=== PATIENT | female | born 1980 | race Caucasian/White ===

== ENCOUNTER 2020-06-23 00:28 | Emergency (ER) | payer BC ==
[2020-06-23] MEDS ORDERED: predniSONE 20 MG Tab PO STA (01:04)
--- NOTE | 2020-06-23 01:11 | EDM.PDOC ---
ED HPI GENERAL MEDICAL PROBLEM - General Chief Complaint: Allergic Reaction Stated Complaint: POSS ALLERGIG REACTION Time Seen by Provider: 06/23/20 00:39 Source of Information: Reports: Patient History Limitations: Reports: No Limitations - History of Present Illness INITIAL COMMENTS - FREE TEXT/NARRATIVE: Mrs. Wgigins is a very pleasant 40-year-old woman who now presents the ED concerned that she may be suffering from an allergic reaction. She states that she had head and facial pressure, and a headache, with a fever up to 101 degrees, although no purulent nasal drainage, therefore she was seen at the walk-in clinic on , 06/15/2020. She states that no tests were done, but that she was diagnosed with a sinus infection and prescribed an antibiotic that she believes was doxycycline, 1 tablet twice a day for 7 days. She completed the course of the antibiotic 06/21/2020. About that time, she developed a pruritic erythematous rash extending from her ears, going down her neck and onto her chest. She is particularly pruritic on her palms. She feels like her lips are swollen, although she has no difficulty swallowing. No dyspnea or wheezing. No gastrointestinal upset or diarrhea. No prior similar symptoms. The patient states that she ordinarily takes 1 tablet of Zyrtec daily to treat her allergic rhinitis, however, when the rash developed, she switched to Benadryl, 25 mg 3 times a day. Here in the ED, the patient's initial BP is found to be modestly elevated at 153/82, otherwise, she is hemodynamically stable, afebrile, saturating 99% on room air. Prior to Friday, the patient denies having a recent fever, chills, sore throat, ear pain, nasal or sinus congestion, cough, dyspnea, chest pain, palpitations, nausea, vomiting, constipation, diarrhea, abdominal pain, urinary symptoms, recent weight gain or weight loss, recent bloody bowel movements or black bowel movements, recent joint aches, headaches, or rashes. The patient's PCP is Arline Grimes NP. Her women's health provider is Mariaelena Turcios NP. - Related Data Allergies Allergy/AdvReac Type Severity Reaction Status Date / Time doxycycline Allergy Rash Verified 06/23/20 01:06 Home Meds: Home Meds EPINEPHrine [Auvi-Q] 1 injection IM ASDIRECTED PRN #1 kit 06/23/20 [Rx] predniSONE [Prednisone] 1 tab PO QPM #4 tablet 06/23/20 [Rx] Past Medical History HEENT History: Reports: Allergic Rhinitis - Past Surgical History HEENT Surgical History: Reports: Oral Surgery (dental extractions) Female Surgical History: Reports: Breast Reduction Musculoskeletal Surgical History: Reports: Ganglion Cyst (right ankle) Social & Family History - Tobacco Use Smoking Status *Q: Former Smoker Years of Tobacco use: 13 Packs/Tins Daily: 0.5 Month/Year Tobacco Last Used: Quit 2011 - Alcohol Use Alcohol Use History: No - Recreational Drug Use Recreational Drug Use: No - Living Situation & Occupation Living situation: Reports: , with Spouse, with Family (2 kids) 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 ED EXAM GENERAL NO PERIP PULSE - Physical Exam Exam: See Below Exam Limited By: No Limitations General Appearance: Alert, WD/WN, No Apparent Distress Eye Exam: Bilateral Eye: EOMI, Normal Inspection Ears: Normal External Exam, Normal Canal, Hearing Grossly Normal, Normal TMs Nose: Normal Inspection, Normal Mucosa, No Blood Throat/Mouth: Normal Inspection (No angioedema), Normal Teeth, Normal Gums, Normal Oropharynx (No uvular edema), Normal Voice, No Airway Compromise Head: Atraumatic, Normocephalic, Facial Swelling (mild, generalized) Neck: Normal Inspection, Full Range of Motion Respiratory/Chest: No Respiratory Distress, Lungs Clear, Normal Breath Sounds, No Accessory Muscle Use. No: Decreased Breath Sounds, Crackles, Rhonchi, Wheezing, Stridor, Prolonged Expiration Cardiovascular: Normal Peripheral Pulses, Regular Rate, Rhythm, No Edema, No Gallop, No JVD, No Murmur, No Rub GI/Abdominal: Normal Bowel Sounds, Soft, Non-Tender, No Organomegaly, No Distention, No Abnormal Bruit, No Mass Back Exam: Normal Inspection, Full Range of Motion, NT Extremities: Normal Inspection, Normal Range of Motion, No Pedal Edema, Normal Capillary Refill Neurological: Alert, Oriented, Normal Cognition, No Motor/Sensory Deficits Psychiatric: Normal Affect Skin Exam: Warm, Dry, Intact, Normal Color, Other (Generalized urticaria) Course - Vital Signs Last Recorded V/S: Last Vital Signs Temp 36.3 C 06/23/20 00:38 Pulse 65 06/23/20 00:38 Resp 20 06/23/20 00:38 BP 153/82 H 06/23/20 00:38 Pulse Ox 99 06/23/20 00:38 - Orders/Labs/Meds Meds: Medications Discontinued Medications Generic Name Dose Route Start Last Admin Trade Name Amarilys PRN Reason Stop Dose Admin Prednisone 40 mg 06/23/20 01:04 06/23/20 01:11 Prednisone PO 06/23/20 01:05 40 mg ONETIME STA Administration - Re-Assessments/Exams Free Text/Narrative Re-Assessment/Exam: 06/23/20 01:05 As above, the patient developed a pruritic rash on Friday night, after completing a prescription of an antibiotic that she believes was doxycycline. No associated dyspnea or wheezing. She feels like her lips are swollen, and her face does appear to be somewhat swollen on exam, although I do not see any signs of angioedema. On exam, she has generalized urticaria. She ordinarily takes Zyrtec daily, but has been taking Benadryl since Friday night. The patient appears to be suffering from an allergic reaction, likely to the antibiotic that she took, but it is also possible that it is due to something else that she ingested. For tonight's purposes, the patient will be given 40 mg of oral prednisone, and going forward, I am recommending that she resume her daily Zyrtec, as opposed to Benadryl. I will submit a prescription for the patient to complete a 5-day course of prednisone, along with an EpiPen kit. I advised her to stay as cool as possible to minimize pruritus. I will refer her to an [facility] Work[facility] in [place]. Departure - Departure Time of Disposition: 01:07 Disposition: Home, Self-Care 01 Condition: Good Clinical Impression: Allergic reaction - Discharge Information *PRESCRIPTION DRUG MONITORING PROGRAM REVIEWED*: Not Applicable *COPY OF PRESCRIPTION DRUG MONITORING REPORT IN PATIENT DARLYN: Not Applicable Prescriptions: EPINEPHrine [Auvi-Q] 1 injection IM ASDIRECTED PRN #1 kit PRN Reason: Shortness Of Breath predniSONE [Prednisone] 1 tab PO QPM #4 tablet Instructions: Drug Rash, Drug Allergy, [id number] Referrals: Arline Grimes NP [Primary Care Provider] - Radha De Leon MD [Ordering Only Provider] - Forms: ED Department Discharge Additional Instructions: You were seen in the emergency room after developing an itchy rash after taking 1 week of an antibiotic. Based on your history and physical examination, you are suffering from an allergic reaction. It is quite possible, and even likely, that the allergies to the antibiotic, however, it is also possible that it is due to something else that you have ingested. You have been started on the steroid prednisone, and a prescription for prednisone has been sent to the [facility]. Take 1 tablet of prednisone every evening, starting this evening, 06/23/2020, as prescribed. We recommend that you resume taking Zyrtec on a daily basis. You can discontinue the Benadryl. As discussed, we recommend that you stay as cool as possible, as heat will tend to make the itchiness worse. A prescription for an epinephrine auto-injection kit has also been sent to the [facility]. Inject your anterolateral thigh if you suffer an allergic reaction and have difficulty breathing. You may repeat after 15 minutes, if necessary, however, if you use your epinephrine, it is imperative that you go to the nearest emergency room as soon as possible. It is very important that it is determined what it is that you are allergic to. Please follow-up with the [facility] [employer] [facility] Dr. Radha De Leon, in [place], at the next available appointment. If any other problems, please do not hesitate to return to the ER. Sepsis Event Note (ED) - Evaluation Sepsis Screening Result: No Definite Risk - Focused Exam Vital Signs: Vital Signs Temp Pulse Resp BP Pulse Ox 06/23/20 00:38 36.3 C 65 20 153/82 H 99
== END 2020-06-23 01:24 | disposition home or self-care (01) ==
LOC: JD.ED 00:28
DX: L50.0 Allergic urticaria (principal); Z88.1 Allergy status to other antibiotic agents; Z87.891 Personal history of nicotine dependence
CPT/HCPCS: 99283; J7512